=== PATIENT | male | born 1990 | race Caucasian/White ===

== ENCOUNTER 2022-06-12 14:49 | Emergency (ER) | payer OTHER ==
[~2022-06-12] VITALS: Ht 175.3 cm; Wt 77.1 kg
[2022-06-12] MEDS ORDERED: CYCLOBENZAPRINE HCL 10 MG TABLET PO ONE (16:15)
[2022-06-12] MEDS ORDERED: KETOROLAC TROMETHAMINE 15 MG INJ IM ONE (16:15)
[2022-06-12] MEDS ORDERED: KETOROLAC TROMETHAMINE 15 MG INJ ONE (16:17)
[2022-06-12] MEDS ORDERED: CYCLOBENZAPRINE HCL 10 MG TABLET ONE (16:17)
--- NOTE | 2022-06-12 16:48 | NUR ---
Resting in bed, speaking on the phone. NAD noted.
--- NOTE | 2022-06-12 17:37 | NUR ---
Pt states his back pain is better and awaiting for discharge.
[2022-06-12 18:21] VITALS: BP 120/67
[2022-06-12] MEDS ORDERED: CYCL5TAB PO (18:31)
[2022-06-12] MEDS ORDERED: NAPR-1009 PO (18:31)
--- NOTE | 2022-06-12 19:07 | NUR ---
Patient discharged to home in stable condition. Written and verbal after care instructions given. Patient verbalizes understanding of instructions. Stressed follow up or return to ER for worsening s/s. Pt walked out of Er w/ steady gait.
== END 2022-06-12 19:09 | disposition home or self-care (01) ==
LOC: ER 14:49
DX: S39.012A Strain of muscle, fascia and tendon of lower back, initial encounter (principal); X58.XXXA Exposure to other specified factors, initial encounter; Y92.89 Other specified places as the place of occurrence of the external cause; S32.029D Unspecified fracture of second lumbar vertebra, subsequent encounter for fracture with routine healing; W19.XXXD Unspecified fall, subsequent encounter; R03.0 Elevated blood-pressure reading, without diagnosis of hypertension
CPT/HCPCS: 99284; 72131; 72100; 96372; J1885; A4663

== ENCOUNTER 2023-08-04 17:56 | Emergency (ER) | payer OTHER ==
[~2023-08-04] VITALS: Ht 175.3 cm; Wt 78.9 kg
[~2023-08-04 17:56] MED LIST: CYCL5TAB PO; NAPR-1009 PO
[2023-08-04] MEDS ORDERED: IBUP-2314 PO (18:52)
[2023-08-04] MEDS ORDERED: DEXAMETHASONE SOD PHOSPHATE 4 MG INJ IM ONE (21:30)
[2023-08-04] MEDS ORDERED: AMOXicillin 250 MG CAPSULE PO ONE (21:30)
[2023-08-04] MEDS ORDERED: ACET-2605 PO ×2 (21:35→22:29)
[2023-08-04] MEDS ORDERED: AMOX500T2 PO ×2 (21:35→22:29)
[2023-08-04] MEDS ORDERED: ACETAMINOPHEN ES 500 MG TABLET ONE (21:37)
[2023-08-04] MEDS ORDERED: DEXAMETHASONE SOD PHOSPHATE 10 MG INJ ONE (21:37)
[2023-08-04] MEDS ORDERED: AMOXicillin 250 MG CAPSULE ONE (21:37)
[2023-08-04] MEDS ORDERED: ACETAMINOPHEN ES 500 MG TABLET PO ONE (21:45)
[2023-08-04 21:46] VITALS: BP 133/83; O2SAT 96
== END 2023-08-04 21:46 | disposition home or self-care (01) ==
LOC: ER 18:02
DX: J02.0 Streptococcal pharyngitis (principal); M25.562 Pain in left knee; Z79.899 Other long term (current) drug therapy; Z20.822 Contact with and (suspected) exposure to COVID-19; Z60.2 Problems related to living alone
CPT/HCPCS: 86403; A4606; A4663; A9150; J1100